=== PATIENT | female | born 1955 | race Caucasian/White ===

== ENCOUNTER 2023-03-28 06:15 | Day surgery (SDC) | payer BC ==
[2023-03-19 18:45] VITALS: BMI 25.4
[2023-03-28] MEDS ORDERED: CEFAZOLIN 2 GM in DEXTROSE 5%-WATER - 50 ML IVPB ONE (06:30)
[2023-03-28] MEDS ORDERED: PROPOFOL 40 ML ONE (06:53)
[2023-03-28] MEDS ORDERED: MIDAZOLAM HCL 2 MG/2 ML SINGLE DOSE VIAL ONE (06:53)
[2023-03-28] MEDS ORDERED: LACTATED RINGERS SOLUTION 1,000 ML IV SCH (07:00)
[2023-03-28] MEDS ORDERED: oxyCODONE HCL 5 MG TABLET PO PRN (07:00)
[2023-03-28] MEDS ORDERED: ACETAMINOPHEN 325 MG TABLET (FP) PO PRN (07:00)
[2023-03-28] MEDS ORDERED: ONDANSETRON 4 MG/2 ML VIAL IVPUSH PRN ×2 (07:00→09:52)
[2023-03-28] MEDS ORDERED: BUPIVACAINE LIPOSOME/PF (EXPAREL) 266 MG/20 ML VIAL ONE (07:07)
[2023-03-28] MEDS ORDERED: BUPIVACAINE HCL/PF 0.5% (5 MG/ML) 30 ML VIAL IJ ONE (07:07)
[2023-03-28] MEDS ORDERED: ACETAMINOPHEN INJECTION 100 ML IVPB ONE (07:07)
[2023-03-28] MEDS ORDERED: TRANEXAMIC ACID 1000 MG/10 ML VIAL IVPUSH ONE (07:45)
[2023-03-28] MEDS ORDERED: ceFAZolin SODIUM 1 GM VIAL ONE ×2 (08:01)
[2023-03-28] MEDS ORDERED: DEXAMETHASONE SOD PHOSPHATE 4 MG/1 ML VIAL ONE (08:01)
[2023-03-28] MEDS ORDERED: KETOROLAC TROMETHAMINE 30 MG/1 ML VIAL ONE (08:02)
[2023-03-28] MEDS ORDERED: MAGNESIUM HYDROX 2400MG/30ML ORAL SUSPENSION 30 ML CUP PO PRN (09:52)
[2023-03-28] MEDS ORDERED: MAG HYDROX/AL HYDROX/SIMETH 30 ML UNIT-DOSE CUP PO PRN (09:52)
[2023-03-28] MEDS ORDERED: SODIUM CHLORIDE 1,000 ML IV SCH (10:00)
[2023-03-28] MEDS: CELECOXIB 100 MG CAPSULE PO SCH ×2 (12:21→21:28)
[2023-03-28] MEDS: MULTIVITAMINS (DAILY MVI) TABLET (FP) PO SCH (12:23)
[2023-03-28] MEDS: FAMOTIDINE 20 MG TABLET PO SCH ×2 (12:23→21:28)
[2023-03-28] MEDS: INSULIN SLIDING SCALE (NOVOLOG) 1 VIAL SQ SCH ×3 (12:23→21:30)
[2023-03-28] MEDS: SENNOSIDES/DOCUSATE COMBO (SENNA PLUS) TABLET (UD) PO SCH ×2 (12:23→21:28)
[2023-03-28] MEDS ORDERED: ACETAMINOPHEN 1000 MG/100 ML BAG IVPB SCH (16:30)
[2023-03-28] MEDS: CEFAZOLIN SODIUM 2 GM in DEXTROSE 5%-WATER 100 ML IVPB SCH (16:59)
[2023-03-28] MEDS: ACETAMINOPHEN 1000 MG/100 ML BAG IVPB SCH (17:00)
[2023-03-28] MEDS: ASPIRIN 81 MG CHEWABLE TABLETS PO SCH (21:28)
[2023-03-28] MEDS ORDERED: ROSUVASTATIN CA 20 MG TABLET PO SCH (22:00)
[2023-03-29] MEDS: CEFAZOLIN SODIUM 2 GM in DEXTROSE 5%-WATER 100 ML IVPB SCH (00:56)
[2023-03-29 01:29] VITALS: RESP 18
[2023-03-29] MEDS: ACETAMINOPHEN 1000 MG/100 ML BAG IVPB SCH (01:32)
[2023-03-29] MEDS: INSULIN SLIDING SCALE (NOVOLOG) 1 VIAL SQ SCH ×2 (06:12→12:32)
[2023-03-29] MEDS: oxyCODONE HCL 5 MG TABLET PO PRN ×2 (06:13→14:11)
[2023-03-29] MEDS ORDERED: LEVOTHYROXINE NA 50 MCG TABLET (FP) PO SCH (07:00)
[2023-03-29] MEDS ORDERED: ACETAMINOPHEN 500 MG TABLET (FP) PO SCH (08:30)
[2023-03-29] MEDS: CELECOXIB 100 MG CAPSULE PO SCH (09:23)
[2023-03-29] MEDS: ASPIRIN 81 MG CHEWABLE TABLETS PO SCH (09:23)
[2023-03-29] MEDS: MULTIVITAMINS (DAILY MVI) TABLET (FP) PO SCH (09:23)
[2023-03-29] MEDS: SENNOSIDES/DOCUSATE COMBO (SENNA PLUS) TABLET (UD) PO SCH (09:24)
[2023-03-29] MEDS: FAMOTIDINE 20 MG TABLET PO SCH (09:25)
[2023-03-29] MEDS ORDERED: DEXAMETHASONE 4 MG TABLET (FP) PO ONE ×2 (10:00→16:37)
[2023-03-29 14:23] VITALS: BP 110/54; PULSE 50; TEMP 97.9
== END 2023-03-29 16:31 | disposition home or self-care (01) ==
LOC: FASUSAT 06:15 → FM/S 11:13 → FASUSAT 03-29 16:31
PROVIDERS: ATTEND Orthopaedic Surgery
PROC: 0SRD0J9 Replacement of Left Knee Joint with Synthetic Substitute, Cemented, Open Approach (ICD-10-PCS; principal; 2023-03-28 08:03)
DX: M17.12 Unilateral primary osteoarthritis, left knee (principal)
CPT/HCPCS: 27447; C1776; 73560-TC-LT-FY; 82962; 94760; 97010-GP; 97116-GP; 97162-GP; C1889